=== PATIENT | female | born 1990 | race Caucasian/White ===

== ENCOUNTER 2023-01-01 17:42 | Emergency (ER) | payer MEDICAID ==
[~2023-01-01] VITALS: Ht 157.5 cm; Wt 92.5 kg
--- NOTE | 2023-01-01 17:42 | NUR ---
Pt ambulated into ER with RA100. Pt states she has a history of gastritis, she drank alcohol and ate fried chicken, and now she is having epigastric pain and n/v. Pt arrives anxious and emotionally upset, states she just found out her best friend was dx with cancer.
--- NOTE | 2023-01-01 17:44 | NUR ---
PT BROUGHT IN BY EMS; ER MD AT BEDSIDE FOR MSE
[2023-01-01] MEDS ORDERED: ONDANSETRON 4 MG/2 ML VIAL IV ONE (17:45)
[2023-01-01] MEDS ORDERED: IV NORMAL SALINE 1000 ML BAG IV ONE (17:45)
[2023-01-01] MEDS ORDERED: FAMOTIDINE. 20 MG/2 ML VIAL IV ONE ×2 (17:45→17:48)
[2023-01-01] MEDS ORDERED: ONDANSETRON 4 MG/2 ML VIAL ONE ×3 (17:48→19:11)
[2023-01-01 17:59] LABS: MEAN CORPUSCULAR HEMOGLOBIN 27.2 uug (24.7-32.8); MEAN CORPUSCULAR VOLUME 83.7 fL (75.5-95.3); PLATELET COUNT (AUTO) 354 K/uL (179-408)
[2023-01-01 18:06] LABS: CREATININE 0.8 mg/dL (0.6-1.3); POTASSIUM 3.4 mmol/L (3.5-5.1)
[2023-01-01 18:12] LABS: BILIRUBIN,DIRECT 0.1 mg/dL (0.0-0.2); BILIRUBIN,TOTAL 0.2 mg/dL (0.2-1.0); TOTAL PROTEIN, SERUM 7.9 g/dL (6.4-8.2)
[2023-01-01] MEDS ORDERED: LORAZEPAM 2 MG/1 ML VIAL ONE (18:14)
[2023-01-01] MEDS ORDERED: LORAZEPAM 2 MG/1 ML VIAL IV ONE (18:15)
[2023-01-01] MEDS ORDERED: POTASSIUM CHLORIDE 20 MEQ TAB.PRT.SR PO ONE ×2 (18:30→20:30)
[2023-01-01] MEDS ORDERED: ONDA4TAB11 PO (18:30)
[2023-01-01] MEDS ORDERED: diphenhydrAMINE 50 MG/1 ML VIAL IV ONE (19:00)
[2023-01-01] MEDS ORDERED: METOCLOPRAMIDE HCL 10 MG/2 ML VIAL IV ONE (19:00)
--- NOTE | 2023-01-01 19:04 | NUR ---
ROBERTO TO ENRIQUE SANTOS
--- NOTE | 2023-01-01 19:10 | NUR ---
Recieved report from Juan Manuel SANTOS.
[2023-01-01] MEDS ORDERED: METOCLOPRAMIDE HCL 10 MG/2 ML VIAL ONE (19:11)
[2023-01-01] MEDS ORDERED: diphenhydrAMINE 50 MG/1 ML VIAL ONE (19:11)
[2023-01-01] MEDS: ONDANSETRON 4 MG/2 ML VIAL IV ONE ×2 (19:15→19:25)
--- NOTE | 2023-01-01 20:55 | NUR ---
Per report from Kannan RN patient recieved 8mg of Zofran. 4mg Zofran was placed in med room.
[2023-01-01] MEDS ORDERED: chlorproMAZINE 50 MG/2 ML AMPUL IM ONE (21:00)
[2023-01-01] MEDS ORDERED: chlorproMAZINE 50 MG/2 ML AMPUL ONE (21:04)
[2023-01-01] MEDS ORDERED: POTASSIUM CHLORIDE 20 MEQ TAB.PRT.SR ONE (21:04)
[2023-01-01] MEDS ORDERED: MAGNESIUM SULFATE/D5W 200 ML ONE (21:04)
[2023-01-01] MEDS ORDERED: IV NS 1000 ML 1,000 ML IV ONE (21:30)
[2023-01-01] MEDS: MAGNESIUM SULFATE/D5W 100 ML IV SCH ×2 (21:30→22:16)
--- NOTE | 2023-01-01 22:13 | NUR ---
Called [facility] for panel Call. Angela in [employer].
[2023-01-02] MEDS ORDERED: MORPHINE SULFATE 4 MG/1 ML DISP.SYRIN IV ONE (00:15)
[2023-01-02] MEDS ORDERED: MORPHINE SULFATE 4 MG/1 ML DISP.SYRIN ONE (00:39)
[2023-01-02] MEDS ORDERED: KETOROLAC TROMETHAMINE 60 MG INJ IM ONE (01:00)
[2023-01-02] MEDS ORDERED: MAGNESIUM HYDROXIDE 30 ML LIQUID UDC PO PRN (01:00)
[2023-01-02] MEDS ORDERED: ONDANSETRON 4 MG/2 ML VIAL IV PRN (01:00)
[2023-01-02] MEDS ORDERED: LORAZEPAM 2 MG/1 ML VIAL IV PRN (01:00)
[2023-01-02] MEDS ORDERED: MORPHINE SULFATE 2 MG/1 ML DISP.SYRIN IV PRN (01:00)
[2023-01-02] MEDS ORDERED: IV 1/2NS 1000 ML 1,000 ML IV PRN (01:00)
[2023-01-02] MEDS ORDERED: ACETAMINOPHEN 325 MG TABLET PO PRN (01:00)
--- NOTE | 2023-01-02 02:10 | NUR ---
Patient discharged to home in stable condition. Written and verbal after care instructions given. Patient verbalizes understanding of instructions. Stressed follow up or return to ER for worsening s/s. Patient walked out with steady gait accompainied by her S/O.
[2023-01-02 04:08] VITALS: BP 125/75
[2023-01-02] MEDS ORDERED: PANTOPRAZOLE SODIUM 40 MG TABLET.DR PO SCH (07:00)
== END 2023-01-02 02:15 | disposition home or self-care (01) ==
LOC: ER 17:43
DX: R11.2 Nausea with vomiting, unspecified (principal); F10.129 Alcohol abuse with intoxication, unspecified; R10.2 Pelvic and perineal pain; Z20.822 Contact with and (suspected) exposure to COVID-19; Y90.3 Blood alcohol level of 60-79 mg/100 ml
CPT/HCPCS: 80076; 80048; 83690; 85025; 87426; 84702; 36415; 93005; 76705; 99285; 96361; 96365; 96366; 96375 ×2; 96372; 80320; 80307; J3230; J1200; J3490; J2060; J3475; J2765; J2405 ×3; J7040 ×2; J2270; A4663; G0480